=== PATIENT | female | born 1980 | race African-American/Black ===

== ENCOUNTER 2018-03-04 15:04 | Emergency (ER) | payer OTHER ==
[~2018-03-04] VITALS: Ht 170.2 cm; Wt 131.5 kg
--- OUTSIDE RECORDS SUMMARY | 2018-03-04 15:07 | XMS REPORT | Clinical Summary ---
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 Last Filed Vital Signs Not on file Plan of Treatment Health Maintenance Due Date Last Done Comments CERVICAL CANCER SCREENING 2002 INFLUENZA VACCINE 10/25/2017 HEPATITIS B VACCINES Aged Out No longer eligible based on patient's age to complete this topic IPV VACCINES Aged Out No longer eligible based on patient's age to complete this topic MENINGOCOCCAL VACCINE Aged Out No longer eligible based on patient's age to complete this topic Results Not on fileafter 03/03/2017 Insurance Payer Benefit Subscriber ID Type Phone Address Plan / Group BCBS EXCHANGE BLUE xxxxxxxxxxxx Exchange [employer] H[place] (Home) [place] [address]
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
--- OUTSIDE RECORDS SUMMARY | 2018-03-04 15:08 | XMS REPORT ---
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 20:30:00* Test Item Value Reference Range Comments SODIUM (BEAKER) (test cehu=751) 142 meq/L 135-148 POTASSIUM (BEAKER) (test bwyk=221) 4.0 meq/L 3.6-5.5 CHLORIDE (BEAKER) (test jzdx=403) 101 meq/L 98-106 CO2 (BEAKER) (test ezte=496) 29 meq/L 24-32 BLOOD UREA NITROGEN (BEAKER) (test aqln=070) 11 mg/dL 10-26 CREATININE (BEAKER) (test iuie=689) 0.83 mg/dL 0.50-1.20 GLUCOSE RANDOM (BEAKER) (test sglx=749) 93 mg/dL 70-110 CALCIUM (BEAKER) (test keru=439) 9.2 mg/dL 8.5-10.5 EGFR (BEAKER) (test julx=6664) 95 mL/min/1.73 sq m ESTIMATED GFR IS NOT ACCURATE CREATININE CLEARANCE IN PREDICTING GLOMERULAR FILTRATION RATE. ESTIMATED GFR IS NOT APPLICABLE FOR DIALYSIS PATIENTS. CREATINE KINASE (CK)2016-10-12 20:30:00* Test Item Value Reference Range Comments CREATINE KINASE TOTAL (BEAKER) (test ltum=799) 55 U/L 25-235 CBC W/PLT COUNT & AUTO [id number] 20:27:00* Test Item Value Reference Range Comments WHITE BLOOD CELL COUNT (BEAKER) (test kwcx=890) 5.7 10e3/ L 4.0-10.0 RED BLOOD CELL COUNT (BEAKER) (test ctdn=061) 3.43 10e6/ L 4.00-5.00 HEMOGLOBIN (BEAKER) (test wxpg=745) 9.8 g/dL 12.0-15.0 HEMATOCRIT (BEAKER) (test tndj=789) 30.0 % 36.0-45.0 MEAN CORPUSCULAR VOLUME (BEAKER) (test kufu=307) 87.3 fL 82.0-99.0 MEAN CORPUSCULAR HEMOGLOBIN (BEAKER) (test vett=956) 28.4 pg 27.0-33.0 MEAN CORPUSCULAR HEMOGLOBIN CONC (BEAKER) (test thvi=051) 32.6 g/dL 32.0-36.0 RED CELL DISTRIBUTION WIDTH (BEAKER) (test kfsa=582) 12.8 % 10.3-14.2 PLATELET COUNT (BEAKER) (test zjaq=742) 330 10e3/ L 150-430 MEAN PLATELET VOLUME (BEAKER) (test duuy=238) 8.6 fL 6.5-10.5 NEUTROPHILS RELATIVE PERCENT (BEAKER) (test tuay=430) 52 % LYMPHOCYTES RELATIVE PERCENT (BEAKER) (test epnw=949) 34 % MONOCYTES RELATIVE PERCENT (BEAKER) (test xggn=062) 11 % EOSINOPHILS RELATIVE PERCENT (BEAKER) (test uvgj=749) 3 % BASOPHILS RELATIVE PERCENT (BEAKER) (test kith=918) 0 % NEUTROPHILS ABSOLUTE COUNT (BEAKER) (test ptou=226) 2.94 10e3/ L 1.80-8.00 LYMPHOCYTES ABSOLUTE COUNT (BEAKER) (test fzcv=498) 1.90 10e3/ L 1.48-4.50 MONOCYTES ABSOLUTE COUNT (BEAKER) (test hjcw=875) 0.63 10e3/ L 0.00-1.30 EOSINOPHILS ABSOLUTE COUNT (BEAKER) (test nusf=706) 0.19 10e3/ L 0.00-0.50 BASOPHILS ABSOLUTE COUNT (BEAKER) (test idft=332) 0.02 10e3/ L 0.00-0.20 SCREEN, [id number] 00:32:00* Test Item Value Reference Range Comments TEST URINE (BEAKER) (test ylxg=842) Negative CBC W/PLT COUNT & AUTO [id number] 22:02:00* Test Item Value Reference Range Comments WHITE BLOOD CELL COUNT (BEAKER) (test eiqx=679) 4.8 K/ L 4.0-10.0 RED BLOOD CELL COUNT (BEAKER) (test tdus=219) 3.70 M/ L 4.00-5.00 HEMOGLOBIN (BEAKER) (test okru=655) 10.8 GM/DL 12.0-15.0 HEMATOCRIT (BEAKER) (test ubjh=389) 33.3 % 36.0-45.0 MEAN CORPUSCULAR VOLUME (BEAKER) (test hkrd=372) 90.0 fL 82.0-99.0 MEAN CORPUSCULAR HEMOGLOBIN (BEAKER) (test tndm=989) 29.2 pg 27.0-33.0 MEAN CORPUSCULAR HEMOGLOBIN CONC (BEAKER) (test lhoh=332) 32.4 GM/DL 32.0-36.0 RED CELL DISTRIBUTION WIDTH (BEAKER) (test fxhi=065) 15.4 % 10.3-14.2 PLATELET COUNT (BEAKER) (test iqdv=783) 351 K/CU MM 150-430 MEAN PLATELET VOLUME (BEAKER) (test iuuf=536) 8.2 fL 6.5-10.5 NUCLEATED RED BLOOD CELLS (BEAKER) (test dgyr=171) 0 /100 WBC 0-0 0.00(MANUAL DIFFERENTIAL)2016-09-19 22:02:00* Test Item Value Reference Range Comments NEUTROPHILS - REL (DIFF) (BEAKER) (test mzoe=4590) 38 % LYMPHOCYTES - REL (DIFF) (BEAKER) (test qtbw=0498) 48 % MONOCYTES - REL (DIFF) (BEAKER) (test iwxx=5670) 11 % EOSINOPHILS - REL (DIFF) (BEAKER) (test ddzp=3232) 2 % BASOPHILS - REL (DIFF) (BEAKER) (test rmsj=7768) 1 % NEUTROPHILS - ABS (DIFF) (BEAKER) (test flki=8606) 1.82 K/ L 1.80-8.00 LYMPHOCYTES - ABS (DIFF) (BEAKER) (test lcda=1378) 2.30 K/ L 1.48-4.50 MONOCYTES - ABS (DIFF) (BEAKER) (test virl=0035) 0.53 K/ L 0.00-1.30 EOSINOPHILS - ABS (DIFF) (BEAKER) (test uabk=0024) 0.10 K/ L 0.00-0.50 BASOPHILS - ABS (DIFF) (BEAKER) (test hpbx=8407) 0.05 K/ L 0.00-0.20 TOTAL COUNTED (BEAKER) (test yzpr=2035) 100 WBC MORPHOLOGY (BEAKER) (test kdmt=354) Normal PLT MORPHOLOGY (BEAKER) (test rbxm=784) Normal RBC MORPHOLOGY (BEAKER) (test fcfr=289) Normal [id number] 21:15:00* Test Item Value Reference Range Comments LIPASE (BEAKER) (test ebbw=287) 42 U/L 8-78 [id number] 21:15:00* Test Item Value Reference Range Comments AMYLASE (BEAKER) (test cctu=195) 90 U/L 25-125 COMPREHENSIVE METABOLIC [id number] 21:15:00* Test Item Value Reference Range Comments TOTAL PROTEIN (BEAKER) (test fkrn=009) 8.2 gm/dL 6.0-8.3 ALBUMIN (BEAKER) (test sfqs=9763) 3.8 g/dL 3.5-5.0 ALKALINE PHOSPHATASE (BEAKER) (test oeep=514) 65 U/L 40-150 BILIRUBIN TOTAL (BEAKER) (test aemj=738) 0.4 mg/dL 0.2-1.2 SODIUM (BEAKER) (test ewhx=373) 139 meq/L 136-145 POTASSIUM (BEAKER) (test cqgz=944) 3.7 meq/L 3.5-5.1 CHLORIDE (BEAKER) (test nbnq=180) 106 meq/L 98-107 CO2 (BEAKER) (test chck=637) 23 meq/L 22-29 BLOOD UREA NITROGEN (BEAKER) (test xvzu=310) 12 mg/dL 7-21 CREATININE (BEAKER) (test xyje=987) 0.91 mg/dL 0.57-1.25 GLUCOSE RANDOM (BEAKER) (test mwyw=108) 96 mg/dL 70-105 CALCIUM (BEAKER) (test nhuy=272) 9.3 mg/dL 8.4-10.2 AST (SGOT) (BEAKER) (test deqp=597) 15 U/L 5-34 ALT (SGPT) (BEAKER) (test zyyl=506) 16 U/L 6-55 EGFR (BEAKER) (test xxrg=9852) 86 mL/min/1.73 sq m ESTIMATED GFR IS NOT ACCURATE CREATININE CLEARANCE IN PREDICTING GLOMERULAR FILTRATION RATE. ESTIMATED GFR IS NOT APPLICABLE FOR DIALYSIS PATIENTS. HEPATIC FUNCTION [id number] 21:15:00* Test Item Value Reference Range Comments TOTAL PROTEIN (BEAKER) (test uyvr=647) 8.2 gm/dL 6.0-8.3 ALBUMIN (BEAKER) (test nlln=4333) 3.8 g/dL 3.5-5.0 BILIRUBIN TOTAL (BEAKER) (test lubi=276) 0.4 mg/dL 0.2-1.2 BILIRUBIN DIRECT (BEAKER) (test qtbj=248) 0.1 mg/dL 0.1-0.5 ALKALINE PHOSPHATASE (BEAKER) (test ounw=043) 65 U/L 40-150 AST (SGOT) (BEAKER) (test lijo=188) 15 U/L 5-34 ALT (SGPT) (BEAKER) (test brjg=042) 16 U/L 6-55 URINALYSIS W/ [id number] 21:05:00* Test Item Value Reference Range Comments COLOR (BEAKER) (test vrcg=409) Yellow CLARITY (BEAKER) (test lsjx=878) Hazy SPECIFIC GRAVITY UA (BEAKER) (test iyid=392) 1.016 1.001-1.035 PH UA (BEAKER) (test uffq=114) 5.5 5.0-8.0 PROTEIN UA (BEAKER) (test cqfw=200) 10 mg/dL Negative GLUCOSE UA (BEAKER) (test twfr=151) Negative Negative KETONES UA (BEAKER) (test phea=616) Negative Negative BILIRUBIN UA (BEAKER) (test rjtj=985) Negative Negative BLOOD UA (BEAKER) (test ixvn=937) Trace Negative NITRITE UA (BEAKER) (test pnhk=156) Negative Negative LEUKOCYTE ESTERASE UA (BEAKER) (test qdva=980) Large Negative UROBILINOGEN UA (BEAKER) (test svoc=949) 0.2 mg/dL 0.2-1.0 RBC UA (BEAKER) (test vqes=226) 4 /HPF WBC UA (BEAKER) (test exld=201) 4 /HPF BACTERIA (BEAKER) (test frry=874) Rare MUCUS (BEAKER) (test oneb=3552) Moderate SQUAMOUS EPITHELIAL (BEAKER) (test prmb=783) 4 /HPF SOURCE(BEAKER) (test ofgy=4967) Urine, Clean Catch BASIC METABOLIC [id number] 06:08:00* Test Item Value Reference Range Comments SODIUM (BEAKER) (test ouai=769) 139 meq/L 136-145 POTASSIUM (BEAKER) (test woum=789) 4.0 meq/L 3.5-5.1 CHLORIDE (BEAKER) (test xsom=755) 109 meq/L 98-107 CO2 (BEAKER) (test kyfj=376) 23 meq/L 22-29 BLOOD UREA NITROGEN (BEAKER) (test cbct=002) 13 mg/dL 7-21 CREATININE (BEAKER) (test rpoc=838) 0.79 mg/dL 0.57-1.25 GLUCOSE RANDOM (BEAKER) (test duas=315) 101 mg/dL 70-105 CALCIUM (BEAKER) (test vruy=337) 8.8 mg/dL 8.4-10.2 EGFR (BEAKER) (test gdzw=5320) 101 mL/min/1.73 sq m ESTIMATED GFR IS NOT ACCURATE CREATININE CLEARANCE IN PREDICTING GLOMERULAR FILTRATION RATE. ESTIMATED GFR IS NOT APPLICABLE FOR DIALYSIS PATIENTS. BASIC METABOLIC [id number] 06:45:00* Test Item Value Reference Range Comments SODIUM (BEAKER) (test klki=906) 140 meq/L 136-145 POTASSIUM (BEAKER) (test impw=468) 4.1 meq/L 3.5-5.1 CHLORIDE (BEAKER) (test icfo=698) 109 meq/L 98-107 CO2 (BEAKER) (test hlov=791) 23 meq/L 22-29 BLOOD UREA NITROGEN (BEAKER) (test crbd=858) 11 mg/dL 7-21 CREATININE (BEAKER) (test rkab=067) 0.78 mg/dL 0.57-1.25 GLUCOSE RANDOM (BEAKER) (test jrhf=069) 83 mg/dL 70-105 CALCIUM (BEAKER) (test zrwx=550) 9.0 mg/dL 8.4-10.2 EGFR (BEAKER) (test ztqi=9535) 102 mL/min/1.73 sq m ESTIMATED GFR IS NOT ACCURATE CREATININE CLEARANCE IN PREDICTING GLOMERULAR FILTRATION RATE. ESTIMATED GFR IS NOT APPLICABLE FOR DIALYSIS PATIENTS. CBC W/PLT COUNT & AUTO [id number] 06:57:00* Test Item Value Reference Range Comments WHITE BLOOD CELL COUNT (BEAKER) (test axmn=772) 5.3 K/ L 4.0-10.0 RED BLOOD CELL COUNT (BEAKER) (test pldn=543) 3.43 M/ L 4.00-5.00 HEMOGLOBIN (BEAKER) (test igtp=027) 10.0 GM/DL 12.0-15.0 HEMATOCRIT (BEAKER) (test hrcz=164) 30.4 % 36.0-45.0 MEAN CORPUSCULAR VOLUME (BEAKER) (test hthm=569) 88.6 fL 82.0-99.0 MEAN CORPUSCULAR HEMOGLOBIN (BEAKER) (test ckap=738) 29.1 pg 27.0-33.0 MEAN CORPUSCULAR HEMOGLOBIN CONC (BEAKER) (test cqfj=498) 32.9 GM/DL 32.0-36.0 RED CELL DISTRIBUTION WIDTH (BEAKER) (test qcsk=174) 16.0 % 10.3-14.2 PLATELET COUNT (BEAKER) (test nxbf=175) 332 K/CU MM 150-430 MEAN PLATELET VOLUME (BEAKER) (test tljh=548) 8.5 fL 6.5-10.5 NUCLEATED RED BLOOD CELLS (BEAKER) (test hpfo=653) 0 /100 WBC 0-0 NEUTROPHILS RELATIVE PERCENT (BEAKER) (test elnk=494) 51 % LYMPHOCYTES RELATIVE PERCENT (BEAKER) (test bfza=404) 29 % MONOCYTES RELATIVE PERCENT (BEAKER) (test whru=681) 15 % EOSINOPHILS RELATIVE PERCENT (BEAKER) (test bumw=656) 5 % BASOPHILS RELATIVE PERCENT (BEAKER) (test rvid=910) 1 % NEUTROPHILS ABSOLUTE COUNT (BEAKER) (test bshi=500) 2.69 K/ L 1.80-8.00 LYMPHOCYTES ABSOLUTE COUNT (BEAKER) (test btkg=091) 1.54 K/ L 1.48-4.50 MONOCYTES ABSOLUTE COUNT (BEAKER) (test txip=404) 0.78 K/ L 0.00-1.30 EOSINOPHILS ABSOLUTE COUNT (BEAKER) (test hlml=417) 0.26 K/ L 0.00-0.50 BASOPHILS ABSOLUTE COUNT (BEAKER) (test ibes=198) 0.03 K/ L 0.00-0.20 0.00BASI METABOLIC [id number] 06:47:00* Test Item Value Reference Range Comments SODIUM (BEAKER) (test pwmr=307) 138 meq/L 136-145 POTASSIUM (BEAKER) (test sdbn=474) 4.1 meq/L 3.5-5.1 CHLORIDE (BEAKER) (test xnbc=273) 108 meq/L 98-107 CO2 (BEAKER) (test bcbr=004) 23 meq/L 22-29 BLOOD UREA NITROGEN (BEAKER) (test jvjb=774) 10 mg/dL 7-21 CREATININE (BEAKER) (test khhy=350) 0.76 mg/dL 0.57-1.25 GLUCOSE RANDOM (BEAKER) (test ioew=365) 99 mg/dL 70-105 CALCIUM (BEAKER) (test hosh=217) 9.0 mg/dL 8.4-10.2 EGFR (BEAKER) (test ussu=8092) 106 mL/min/1.73 sq m ESTIMATED GFR IS NOT ACCURATE CREATININE CLEARANCE IN PREDICTING GLOMERULAR FILTRATION RATE. ESTIMATED GFR IS NOT APPLICABLE FOR DIALYSIS PATIENTS. CBC W/PLT COUNT & AUTO [id number] 22:27:00* Test Item Value Reference Range Comments WHITE BLOOD CELL COUNT (BEAKER) (test coio=006) 7.8 K/ L 4.0-10.0 RED BLOOD CELL COUNT (BEAKER) (test gqcj=255) 3.55 M/ L 4.00-5.00 HEMOGLOBIN (BEAKER) (test htmu=043) 10.4 GM/DL 12.0-15.0 HEMATOCRIT (BEAKER) (test ewai=516) 31.6 % 36.0-45.0 MEAN CORPUSCULAR VOLUME (BEAKER) (test opvi=049) 89.1 fL 82.0-99.0 MEAN CORPUSCULAR HEMOGLOBIN (BEAKER) (test zuzd=944) 29.3 pg 27.0-33.0 MEAN CORPUSCULAR HEMOGLOBIN CONC (BEAKER) (test vwgh=036) 32.9 GM/DL 32.0-36.0 RED CELL DISTRIBUTION WIDTH (BEAKER) (test mgvq=794) 15.3 % 10.3-14.2 PLATELET COUNT (BEAKER) (test qekl=113) 352 K/CU MM 150-430 MEAN PLATELET VOLUME (BEAKER) (test julx=820) 8.1 fL 6.5-10.5 NUCLEATED RED BLOOD CELLS (BEAKER) (test rxpg=183) 0 /100 WBC 0-0 NEUTROPHILS RELATIVE PERCENT (BEAKER) (test kmid=959) 67 % LYMPHOCYTES RELATIVE PERCENT (BEAKER) (test goeq=181) 19 % MONOCYTES RELATIVE PERCENT (BEAKER) (test kgjn=729) 11 % EOSINOPHILS RELATIVE PERCENT (BEAKER) (test snie=393) 2 % BASOPHILS RELATIVE PERCENT (BEAKER) (test yfia=707) 1 % NEUTROPHILS ABSOLUTE COUNT (BEAKER) (test rcws=446) 5.19 K/ L 1.80-8.00 LYMPHOCYTES ABSOLUTE COUNT (BEAKER) (test xutj=977) 1.47 K/ L 1.48-4.50 MONOCYTES ABSOLUTE COUNT (BEAKER) (test chuu=010) 0.82 K/ L 0.00-1.30 EOSINOPHILS ABSOLUTE COUNT (BEAKER) (test fbap=361) 0.19 K/ L 0.00-0.50 BASOPHILS ABSOLUTE COUNT (BEAKER) (test xgps=516) 0.10 K/ L 0.00-0.20 BASIC METABOLIC [id number] 22:01:00* Test Item Value Reference Range Comments SODIUM (BEAKER) (test glbg=472) 138 meq/L 136-145 POTASSIUM (BEAKER) (test kznf=618) 3.2 meq/L 3.5-5.1 CHLORIDE (BEAKER) (test xpdv=935) 107 meq/L 98-107 CO2 (BEAKER) (test sacm=562) 21 meq/L 22-29 BLOOD UREA NITROGEN (BEAKER) (test nxlk=150) 11 mg/dL 7-21 CREATININE (BEAKER) (test qwes=401) 0.79 mg/dL 0.57-1.25 GLUCOSE RANDOM (BEAKER) (test gwtj=703) 101 mg/dL 70-105 CALCIUM (BEAKER) (test yvng=851) 9.7 mg/dL 8.4-10.2 EGFR (BEAKER) (test bqyt=5121) 101 mL/min/1.73 sq m ESTIMATED GFR IS NOT ACCURATE CREATININE CLEARANCE IN PREDICTING GLOMERULAR FILTRATION RATE. ESTIMATED GFR IS NOT APPLICABLE FOR DIALYSIS PATIENTS.
[2018-03-04] MEDS ORDERED: ONDANSETRON HCL INJ 2 MG/ML VIAL IV ONE (15:30)
[2018-03-04] MEDS ORDERED: SODIUM CHLORIDE 0.9% 1000ML 1,000 ML IV STA (15:40)
[2018-03-04 15:50] LABS: BASOPHILS % 0.3 % (0.0-1.0); EOSINOPHILS # (AUTO) 0.3 (0.0-0.4); EOSINOPHILS % 3.9 % (0.0-6.0); HEMATOCRIT 34.3 % (34.2-44.1); LYMPHOCYTES # (AUTO) 1.9 (1.0-3.2); LYMPHOCYTES % 24.6 % (18.0-39.1); MEAN CORPUSCULAR HEMOGLOBIN 28.7 pg (28-32); MEAN CORPUSCULAR HGB CONC 32.1 g/dL (31-35); MEAN CORPUSCULAR VOLUME 89.6 fL (81-99); MONOCYTES # (AUTO) 0.8 (0.2-0.8); MONOCYTES % 11.2 % (4.4-11.3); NEUTROPHILS # (AUTO) 4.5 (2.1-6.9); NEUTROPHILS % 59.7 % (38.7-80.0); PLATELET COUNT 373 x10e3/uL (140-360); RED BLOOD COUNT 3.83 x10e6/uL (3.6-5.1); RED CELL DISTRIBUTION WIDTH 14.6 % (11.7-14.4)
[2018-03-04 16:04] LABS: ALANINE AMINOTRANSFERASE 50 IU/L (0-55); ALBUMIN 3.5 g/dL (3.5-5.0); ALBUMIN/GLOBULIN RATIO 0.8 (0.8-2.0); ALKALINE PHOSPHATASE 67 IU/L (40-150); ANION GAP 13.3 mmol/L (8-16); BLOOD UREA NITROGEN 9 mg/dL (7-26); BUN/CREATININE RATIO 12 (6-25); CALCIUM 9.4 mg/dL (8.4-10.2); CARBON DIOXIDE 24 mmol/L (22-29); CHLORIDE 102 mmol/L (98-107); CREATININE, SERUM 0.77 mg/dL (0.57-1.11); EST GLOMERULAR FILTRATION RATE > 60 ML/MIN (60-); GLUCOSE 113 mg/dL (74-118); POTASSIUM 3.3 mmol/L (3.5-5.1); SODIUM 136 mmol/L (136-145)
[2018-03-04 16:23] LABS: HCG,QUANTITATIVE 2367.28 mIU/mL (0-10)
[2018-03-04] MEDS ORDERED: ACETAMINOPHEN/CODEINE 300MG - 30MG TAB PO ONE (16:30)
[2018-03-04] MEDS ORDERED: PANTOPRAZOLE SO40 MG PO (17:16)
[2018-03-04] MEDS ORDERED: FERROUS SULFAT324 MG PO (17:16)
[2018-03-04] MEDS ORDERED: PREDNISONE20 MG PO (17:16)
[2018-03-04 18:01] LABS: CLARITY,URINE SL CLOUDY (CLEAR); COLOR,URINE YELLOW (YELLOW)
[2018-03-04 18:02] LABS: BILIRUBIN,URINE NEGATIVE (NEGATIVE); KETONES,URINE NEGATIVE (NEGATIVE); LEUKOCYTE ESTERASE ,URINE TRACE (NEGATIVE); NITRITE,URINE NEGATIVE (NEGATIVE); PROTEIN,URINE DIPSTICK NEGATIVE (NEGATIVE); URINE UROBILINOGEN 0.2 mg/dL (0.2 - 1)
[2018-03-04 18:03] LABS: EPITHELIAL CELLS,URINE MANY /LPF
[2018-03-04 18:04] LABS: BACTERIA,URINE MODERATE /HPF; MUCUS,URINE FEW (RARE)
== END 2018-03-04 18:53 | disposition home or self-care (01) ==
LOC: ER 15:04
DX: O26.91 Pregnancy related conditions, unspecified, first trimester (principal); O23.41 Unspecified infection of urinary tract in pregnancy, first trimester; R07.89 Other chest pain; R10.12 Left upper quadrant pain; R11.0 Nausea; I10 Essential (primary) hypertension; M32.9 Systemic lupus erythematosus, unspecified; M35.00 Sjogren syndrome, unspecified; E66.9 Obesity, unspecified
CPT/HCPCS: 36415; 80053; 81001; 81025; 83690; 84702; 85025; 87086; 99284; J2405; J7030